=== PATIENT | female | born 1955 | race Caucasian/White ===

== ENCOUNTER 2019-06-30 17:20 | Emergency (ER) | payer OTHER, MEDICARE ==
[2019-06-30 17:39] VITALS: O2SAT 95
[2019-06-30] MEDS ORDERED: BENADRYL 50 MG/ML IV ONE (17:44)
[2019-06-30] MEDS ORDERED: solu-MEDROL 125 MG IV ONE (17:44)
[2019-06-30] MEDS ORDERED: Pepcid 20 MG VIAL IV ONE ×2 (17:45→17:49)
[2019-06-30] MEDS ORDERED: PROVENTIL 2.5 MG/3 ML NEB IH ONE ×2 (17:45→18:07)
[2019-06-30] MEDS ORDERED: solu-MEDROL 125 MG ONE (17:49)
[2019-06-30] MEDS ORDERED: BENADRYL 50 MG/ML ONE (17:49)
[2019-06-30] MEDS ORDERED: DUONEB 0.5-3 MG/3 ml Neb IH ONE (18:05)
--- NOTE | 2019-06-30 18:07 | ERPHSYRPT ---
- History of Present Illness Time Seen by Provider: 06/30/19 17:25 Source: patient Exam Limitations: no limitations Patient Subjective Stated Complaint: Rash Triage Nursing Assessment: Patient ambulated into ED and transferred self to bed. Patient A+O X 3. Patient's skin flushed, warm and dry. Patient states she wasn't feeling well today so she took an Amoxicillian that she had at home. Patient states she has taken med before with no problems. Patient states thirty minutes after taking medication she started itching all over and turning red. Patient has light red rash to francisco arms, trunk, back. Patient denies pain or discomfort, SOB, or trouble swallowing. Patient states she is constantly itching. Physician History: 63 yo presented after gen body rash with moderate to severe itching for almost 40 minutes started after taking amoxicillinaround 1630 today as she was nt feeling well and took an old one which she had at home. denies scratchiness of throat or choking sensations, also no shortness of breath/feeling dizzy or light headed. Timing/Duration: today Severity: moderate Associated Symptoms: rash, No nausea, No vomiting, No abdominal pain, No shortness of breath, No heartburn, No diaphoresis, No cough, No chest pain, No fever, No headaches, No loss of appetite, No malaise, No syncope, No weakness Allergies/Adverse Reactions: No Known Drug Allergies Allergy (Unverified 06/30/19 17:29) Hx Influenza Vaccination/Date Given: Yes Hx Pneumococcal Vaccination/Date Given: No Immunizations Up to Date: Yes - Review of Systems Constitutional: No Symptoms Eyes: No Symptoms Ears, Nose, & Throat: No Symptoms Respiratory: No Symptoms Cardiac: No Symptoms Abdominal/Gastrointestinal: No Symptoms Genitourinary Symptoms: No Symptoms Musculoskeletal: No Symptoms Skin: Pruritis, Rash Neurological: No Symptoms Psychological: No Symptoms Endocrine: No Symptoms Hematologic/Lymphatic: No Symptoms Immunological/Allergic: No Symptoms - Past Medical History Pertinent Past Medical History: No Neurological History: No Pertinent History ENT History: No Pertinent History Cardiac History: Hypertension Respiratory History: No Pertinent History Endocrine Medical History: Diabetes Type II Musculoskeletal History: No Pertinent History GI Medical History: No Pertinent History History: No Pertinent History Psycho-Social History: No Pertinent History Female Reproductive Disorders: No Pertinent History - Past Surgical History Past Surgical History: Yes Neuro Surgical History: No Pertinent History Cardiac: No Pertinent History Respiratory: No Pertinent History Gastrointestinal: Cholecystectomy Genitourinary: No Pertinent History Musculoskeletal: No Pertinent History Female Surgical History: Hysterectomy, Tubal Ligation Other Surgical History: Partial Thyroidectomy unknown side. - Social History Smoking Status: Never smoker Exposure to second hand smoke: Yes Drug Use: none Patient Lives Alone: No - Female History Hx Now: No - Nursing Vital Signs Nursing Vital Signs: Initial Vital Signs Temperature 97.9 F 06/30/19 17:30 Pulse Rate 110 H 06/30/19 17:30 Respiratory Rate 18 06/30/19 17:30 Blood Pressure 123/80 06/30/19 17:30 O2 Sat by Pulse Oximetry 95 06/30/19 17:30 Pain Scale Pain Intensity 0 - Physical Exam General Appearance: no apparent distress Eye Exam: PERRL/EOMI, eyes nml inspection Ears, Nose, Throat Exam: normal ENT inspection, pharynx normal, No pharyngeal erythema Neck Exam: normal inspection, non-tender, supple, full range of motion Respiratory Exam: normal breath sounds, lungs clear, No respiratory distress, No diminished breath sounds, No accessory muscle use, No wheezing Cardiovascular Exam: regular rate/rhythm, normal heart sounds Gastrointestinal/Abdomen Exam: soft, normal bowel sounds, No tenderness, No distention Back Exam: normal inspection Extremity Exam: normal inspection, normal range of motion, pelvis stable Neurologic Exam: alert, oriented x 3, cooperative Skin Exam: normal color, warm, rash, other (gen erthema of arms/back with urticarial rash /itch ariza ) SpO2: 95 - Course Nursing assessment & vital signs reviewed: Yes Ordered Tests: Active Orders 24 hr Category Date Time Status Peak Expiratory Flow Rate ONCE RT 06/30/19 18:22 Active Respiratory Therapy Assessment DAILY RT 06/30/19 18:18 Active Medication Summary Discontinued Medications Generic Name Dose Route Start Last Admin Trade Name Freq PRN Reason Stop Dose Admin Albuterol Sulfate 2.5 mg 06/30/19 17:45 06/30/19 18:09 Proventil 2.5 Mg/3 Ml Neb IH 06/30/19 17:46 2.5 mg STAT ONE Administration Albuterol Sulfate Confirm 06/30/19 18:07 Proventil 2.5 Mg/3 Ml Neb Administered 06/30/19 18:08 Dose 2.5 mg IH .STK-MED ONE Albuterol/Ipratropium Confirm 06/30/19 18:05 Duoneb 0.5-3 Mg/3 Ml Neb Administered 06/30/19 18:06 Dose 3 ml IH .STK-MED ONE Diphenhydramine HCl 50 mg 06/30/19 17:44 06/30/19 17:52 Benadryl 50 Mg/Ml IV 06/30/19 17:45 50 mg STAT ONE Administration Diphenhydramine HCl Confirm 06/30/19 17:49 Benadryl 50 Mg/Ml Administered 06/30/19 17:50 Dose 50 mg .ROUTE .STK-MED ONE Famotidine 20 mg 06/30/19 17:45 06/30/19 17:52 Pepcid 20 Mg Vial IV 06/30/19 17:46 20 mg STAT ONE Administration Famotidine Confirm 06/30/19 17:49 Pepcid 20 Mg Vial Administered 06/30/19 17:50 Dose 20 mg IV .STK-MED ONE Methylprednisolone Sodium Succinate 125 mg 06/30/19 17:44 06/30/19 17:53 Solu-Medrol 125 Mg IV 06/30/19 17:45 125 mg STAT ONE Administration Methylprednisolone Sodium Succinate Confirm 06/30/19 17:49 Solu-Medrol 125 Mg Administered 06/30/19 17:50 Dose 125 mg .ROUTE .STK-MED ONE - Progress Progress: improved, re-examined Progress Note: 06/30/19 19:29 improved with solumedrol/benadryl/pepcid. will DC with these meds and out patient follow up. doesnt need any workup and is stable for dc now Counseled pt/family regarding: diagnosis, need for follow-up - Departure Departure Disposition: Home Clinical Impression: Allergic reaction caused by a drug Qualifiers: Encounter type: initial encounter Qualified Code(s): T78.40XA - Allergy, unspecified, initial encounter Condition: Stable Critical Care Time: No Referrals: GREG LLOYD NP [Primary Care Provider] - (1-2 days for re evaluation ) Instructions: Adverse Drug Reactions, Adult (DC) Additional Instructions: close monitor your blood sugar while on steroids. Take Benadryl as needed. Followup with primary care for reevaluation. Return PE or for increasing rash, shortness of breath, choking sensation etc. Prescriptions: Diphenhydramine HCl 25 mg [Benadryl 25 mg Capsule] 25 mg PO Q4H PRN PRN # 20 capsule PRN Reason: Allergies Famotidine 20 mg [Pepcid 20 MG] 20 mg PO BID #10 tablet Prednisone 20 mg [Deltasone 20 mg] 60 mg PO DAILY #15 tablet
[2019-06-30 19:34] VITALS: BP 131/87; PULSE 99
== END 2019-06-30 19:30 | disposition home or self-care (01) ==
LOC: ED 17:20
DX: T78.40XA Allergy, unspecified, initial encounter (principal)
CPT/HCPCS: 94150; 94640; 96374; 96375; 99284; J1200; J2930; J7609; A9270-GY